=== PATIENT | male | born 1955 | race African-American/Black ===

== ENCOUNTER 2017-07-01 11:31 | Inpatient (IN) | payer OTHER ==
[2017-07-01 12:00] VITALS: BMI 30.4
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
[2017-07-01] MEDS ORDERED: MAG HYDROX/AL HYDROX/SIMETH 30 ML UNIT-DOSE CUP PO PRN (13:59)
[2017-07-01] MEDS ORDERED: MAGNESIUM HYDROX 2400MG/30ML ORAL SUSPENSION 30 ML CUP PO PRN (13:59)
[2017-07-01] MEDS ORDERED: ACETAMINOPHEN 325 MG TABLET (FP) PO PRN (13:59)
[2017-07-01] MEDS ORDERED: P-EPHED 60MG/TRIPROLIDI 2.5MG TABLET PO PRN (13:59)
[2017-07-01] MEDS ORDERED: LOPERAMIDE HCL 2 MG CAPSULE PO PRN (13:59)
[2017-07-01] MEDS ORDERED: guaiFENesin/D-METHORPHAN HB 10 ML UNIT-DOSE CUPS PO PRN (13:59)
[2017-07-01] MEDS ORDERED: MAGNESIUM CITRATE 300 ML BOTTLE PO PRN (13:59)
[2017-07-01] MEDS ORDERED: hydrOXYzine PAMOATE 50 MG CAPSULE (FP) PO PRN (13:59)
[2017-07-01] MEDS ORDERED: MENTHOL/PHENOL 1 EACH UD MM PRN (13:59)
[2017-07-01] MEDS ORDERED: METHADONE HCL 10 MG TABLET (FOR DETOX USE ONLY) PO ONE ×2 (14:34→23:00)
[2017-07-01] MEDS: diazePAM 5 MG TABLET PO PRN ×2 (15:57→22:16)
[2017-07-01 18:07] LABS: URINE APPEARANCE CLEAR; URINE BILIRUBIN NEGATIVE (NEGATIVE); URINE BLOOD NEGATIVE (NEGATIVE); URINE COLOR YELLOW; URINE GLUCOSE (UA) NEGATIVE (NEGATIVE); URINE KETONE NEGATIVE (NEGATIVE); URINE NITRITE NEGATIVE (NEGATIVE); URINE PROTEIN NEGATIVE (NEGATIVE)
[2017-07-01 21:47] LABS: URINE LEUK ESTERASE Negative (NEGATIVE)
[2017-07-01] MEDS: BUDESONIDE/FORMETEROL FUMARATE 80/4.5 mcg INHALER IH SCH (22:16)
[2017-07-01] MEDS: BACLOFEN 10 MG TABLET (FP) PO SCH (22:16)
[2017-07-01] MEDS: THIAMINE HCL 100 MG TABLET (FP) PO SCH (22:16)
[2017-07-02] MEDS: BACLOFEN 10 MG TABLET (FP) PO SCH ×3 (05:11→22:13)
[2017-07-02] MEDS: ALBUTEROL SO4 18 GM HFA INHALER IH PRN (07:57)
[2017-07-02] MEDS ORDERED: METHADONE HCL 10 MG TABLET (FOR DETOX USE ONLY) PO ONE (10:00)
[2017-07-02 10:03] LABS: MCH 29.5 pg (25.7-33.7); MCHC 32.3 g/dl (32.0-35.9); MEAN CELL VOLUME 91.3 fl (80-96); MEAN PLT VOLUME 8.4 fl (7.5-11.1); PLATELET COUNT 279 K/MM3 (134-434); RDW 13.6 % (11.9-15.9)
[2017-07-02] MEDS: PRENATAL VITAMINS W/ FOLIC ACID TABLET (FP) PO SCH (10:06)
[2017-07-02] MEDS: BUDESONIDE/FORMETEROL FUMARATE 80/4.5 mcg INHALER IH SCH ×2 (10:08→22:12)
[2017-07-02] MEDS ORDERED: ALBUTEROL SO4 2.5/IPRATROPIUM 0.5 INH SOL 3 ML VIAL.NEB. NEB PRN (10:11)
--- NOTE | 2017-07-02 10:16 | EKG ---
Test Reason : Blood Pressure : / mmHG Vent. Rate : 071 BPM Atrial Rate : 071 BPM P-R Int : 164 ms QRS Dur : 072 ms QT Int : 370 ms P-R-T Axes : 033 065 060 degrees QTc Int : 402 ms NORMAL SINUS RHYTHM NORMAL ECG NO PREVIOUS ECGS AVAILABLE Confirmed by DAYO MURRY, ALISHA ([id number]) on 07/02/2017 10:16:26 AM Referred By: Confirmed By:ALISHA OSHEA MD
[2017-07-02 10:24] LABS: ALBUMIN 3.3 g/dl (3.4-5.0); ALK PHOS 93 U/L (45-117); ANION GAP 6 (8-16); BILIRUBIN,TOTAL 0.6 mg/dL (0.2-1.0); CALCIUM 8.7 mg/dL (8.5-10.1); CO2 25 mmol/L (21-32); GLUCOSE,RANDOM 91 mg/dL (74-106); SGOT/AST 77 U/L (15-37); SGPT/ALT 78 U/L (12-78); TOT PROT 7.1 g/dl (6.4-8.2)
--- NOTE | 2017-07-02 12:12 | PN ---
S COWS - Scale Resting Pulse: 0= [place] 80 or Below Sweatin= Chills/Flushing Restless Observation: 1= Difficult to Sit Still Pupil Size: 0= Normal to Room Light Bone or Joint Aches: 2= Severe Diffuse Aches Runny Nose/ Eye Tearin= None GI Upset > 30mins: 2= Nausea/Diarrhea Tremor Observation of Outstretched Hands: 2= Slight Tremor Visible Yawning Observation: 1= 1-2x During Session Anxiety or Irritability: 2=Irritable/Anxious Goose Flesh Skin: 3=Piloerection COWS Score: 14 S Progress Note (SOAP) Subjective: Diarrhea, Sweating, Body Aches, Tremors, Anxious. Objective: PT. A & O X 3, OBSERVED AMBULATING ON UNIT. NO ACUTE DISTRESS. 07/02/17 12:10 Vital Signs Temperature 96.5 F L 07/02/17 09:39 Pulse Rate 76 07/02/17 09:39 Respiratory Rate 18 07/02/17 09:39 Blood Pressure 142/84 07/02/17 09:39 O2 Sat by Pulse Oximetry (%) Laboratory Tests 07/01/17 07/02/17 07/02/17 15:30 05:30 05:30 WBC 5.0 D RBC 4.41 Hgb 13.0 Hct 40.2 MCV 91.3 MCH 29.5 MCHC 32.3 RDW 13.6 D Plt Count 279 MPV 8.4 Sodium 141 Potassium 4.0 Chloride 110 H Carbon Dioxide 25 Anion Gap 6 L BUN 14 D Creatinine 1.0 D Creat Clearance w eGFR > 60 Random Glucose 91 Calcium 8.7 Total Bilirubin 0.6 AST 77 H D ALT 78 D Alkaline Phosphatase 93 Total Protein 7.1 D Albumin 3.3 L Urine Color Yellow Urine Appearance Clear Urine pH 5.0 Ur Specific [place] 1.017 Urine Protein Negative Urine Glucose (UA) Negative Urine Ketones Negative Urine Blood Negative Urine Nitrite Negative Urine Bilirubin Negative Urine Urobilinogen 2.0 Ur Leukocyte Esterase Negative RPR Titer 07/02/17 05:30 WBC RBC Hgb Hct MCV MCH MCHC RDW Plt Count MPV Sodium Potassium Chloride Carbon Dioxide Anion Gap BUN Creatinine Creat Clearance w eGFR Random Glucose Calcium Total Bilirubin AST ALT Alkaline Phosphatase Total Protein Albumin Urine Color Urine Appearance Urine pH Ur Specific [place] Urine Protein Urine Glucose (UA) Urine Ketones Urine Blood Urine Nitrite Urine Bilirubin Urine Urobilinogen Ur Leukocyte Esterase RPR Titer Nonreactive LABS NOTED. Assessment: 07/02/17 12:10 WITHDRAWAL SYMPTOMS. Plan: CONTINUED DETOX. REPEAT AST ON 07/04/2017 FOR ELEVATED ADMISSION LEVEL. INCREASE DAILY PO FLUID INTAKE.
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
[2017-07-02] MEDS: diazePAM 5 MG TABLET PO PRN ×2 (17:58→22:16)
[2017-07-02] MEDS: THIAMINE HCL 100 MG TABLET (FP) PO SCH (22:52)
[2017-07-02] MEDS: ZOLPIDEM TARTRATE 10 MG TABLET (PARK CARE ONLY) PO PRN (22:54)
[2017-07-03] MEDS: BACLOFEN 10 MG TABLET (FP) PO SCH ×3 (06:16→22:12)
[2017-07-03] MEDS ORDERED: METHADONE HCL 5 MG TABLET (FOR DETOX USE ONLY) PO ONE (10:00)
[2017-07-03] MEDS: PRENATAL VITAMINS W/ FOLIC ACID TABLET (FP) PO SCH (10:14)
[2017-07-03] MEDS: BUDESONIDE/FORMETEROL FUMARATE 80/4.5 mcg INHALER IH SCH ×2 (10:14→22:12)
--- NOTE | 2017-07-03 12:11 | PN ---
S COWS - Scale Resting Pulse: 1= [place] 81-100 Sweatin= Chills/Flushing Restless Observation: 1= Difficult to Sit Still Pupil Size: 0= Normal to Room Light Bone or Joint Aches: 2= Severe Diffuse Aches Runny Nose/ Eye Tearin= None GI Upset > 30mins: 0= None Tremor Observation of Outstretched Hands: 2= Slight Tremor Visible Yawning Observation: 0= None Anxiety or Irritability: 2=Irritable/Anxious Goose Flesh Skin: 3=Piloerection COWS Score: 12 BHS Progress Note (SOAP) Subjective: Tremors, Anxious, Agitated, Body Aches. Objective: PT. A & O X 3, OBSERVED AMBULATING ON UNIT. NO ACUTE DISTRESS. 07/03/17 12:09 Vital Signs Temperature 97.9 F 07/03/17 08:58 Pulse Rate 78 07/03/17 08:58 Respiratory Rate 18 07/03/17 08:58 Blood Pressure 147/95 07/03/17 08:58 O2 Sat by Pulse Oximetry (%) Laboratory Tests 07/01/17 07/02/17 07/02/17 15:30 05:30 05:30 WBC 5.0 D RBC 4.41 Hgb 13.0 Hct 40.2 MCV 91.3 MCH 29.5 MCHC 32.3 RDW 13.6 D Plt Count 279 MPV 8.4 Sodium 141 Potassium 4.0 Chloride 110 H Carbon Dioxide 25 Anion Gap 6 L BUN 14 D Creatinine 1.0 D Creat Clearance w eGFR > 60 Random Glucose 91 Calcium 8.7 Total Bilirubin 0.6 AST 77 H D ALT 78 D Alkaline Phosphatase 93 Total Protein 7.1 D Albumin 3.3 L Urine Color Yellow Urine Appearance Clear Urine pH 5.0 Ur Specific [place] 1.017 Urine Protein Negative Urine Glucose (UA) Negative Urine Ketones Negative Urine Blood Negative Urine Nitrite Negative Urine Bilirubin Negative Urine Urobilinogen 2.0 Ur Leukocyte Esterase Negative RPR Titer 07/02/17 05:30 WBC RBC Hgb Hct MCV MCH MCHC RDW Plt Count MPV Sodium Potassium Chloride Carbon Dioxide Anion Gap BUN Creatinine Creat Clearance w eGFR Random Glucose Calcium Total Bilirubin AST ALT Alkaline Phosphatase Total Protein Albumin Urine Color Urine Appearance Urine pH Ur Specific [place] Urine Protein Urine Glucose (UA) Urine Ketones Urine Blood Urine Nitrite Urine Bilirubin Urine Urobilinogen Ur Leukocyte Esterase RPR Titer Nonreactive LABS NOTED. Assessment: 07/03/17 12:10 WITHDRAWAL SYMPTOMS. Plan: CONTINUE DETOX CLONIDINE, 0.1 MG PO FOR DETOX SYMPTOMS. LIDODERM PATCH FOR LOWER BACK PAIN. INCREASE DAILY PO FLUID INTAKE.
[2017-07-03] MEDS ORDERED: LIDOCAINE 5% TOPICAL PATCH TP ONE (12:12)
[2017-07-03] MEDS ORDERED: cloNIDine HCL 0.1 MG TABLET PO ONE (12:12)
[2017-07-03] MEDS: THIAMINE HCL 100 MG TABLET (FP) PO SCH (22:12)
[2017-07-03] MEDS: diazePAM 5 MG TABLET PO PRN (22:12)
[2017-07-03] MEDS: ZOLPIDEM TARTRATE 10 MG TABLET (PARK CARE ONLY) PO PRN (22:12)
[2017-07-03] MEDS: LIDOCAINE PATCH REMOVAL MC SCH (22:12)
[2017-07-04] MEDS: BACLOFEN 10 MG TABLET (FP) PO SCH ×3 (06:36→22:07)
[2017-07-04] MEDS ORDERED: METHADONE HCL 5 MG TABLET (FOR DETOX USE ONLY) PO ONE (10:00)
[2017-07-04] MEDS: diazePAM 5 MG TABLET PO PRN (10:19)
[2017-07-04] MEDS: PRENATAL VITAMINS W/ FOLIC ACID TABLET (FP) PO SCH (10:22)
[2017-07-04] MEDS: BUDESONIDE/FORMETEROL FUMARATE 80/4.5 mcg INHALER IH SCH ×2 (10:23→22:07)
[2017-07-04] MEDS: LIDOCAINE 5% TOPICAL PATCH TP SCH (10:44)
--- NOTE | 2017-07-04 11:51 | PN ---
BHS Progress Note (SOAP) Subjective: Interrupted Sleep, Anxious, Sweating, Tremors. Objective: PT. A & O X 3, OBSERVED AMBULATING ON UNIT. NO ACUTE DISTRESS. 07/04/17 11:25 Vital Signs Temperature 97.7 F 07/04/17 10:04 Pulse Rate 77 07/04/17 10:04 Respiratory Rate 18 07/04/17 10:04 Blood Pressure 134/85 07/04/17 10:04 O2 Sat by Pulse Oximetry (%) Laboratory Tests 07/01/17 07/02/17 07/02/17 15:30 05:30 05:30 WBC 5.0 D RBC 4.41 Hgb 13.0 Hct 40.2 MCV 91.3 MCH 29.5 MCHC 32.3 RDW 13.6 D Plt Count 279 MPV 8.4 Sodium 141 Potassium 4.0 Chloride 110 H Carbon Dioxide 25 Anion Gap 6 L BUN 14 D Creatinine 1.0 D Creat Clearance w eGFR > 60 Random Glucose 91 Calcium 8.7 Total Bilirubin 0.6 AST 77 H D ALT 78 D Alkaline Phosphatase 93 Total Protein 7.1 D Albumin 3.3 L Urine Color Yellow Urine Appearance Clear Urine pH 5.0 Ur Specific [place] 1.017 Urine Protein Negative Urine Glucose (UA) Negative Urine Ketones Negative Urine Blood Negative Urine Nitrite Negative Urine Bilirubin Negative Urine Urobilinogen 2.0 Ur Leukocyte Esterase Negative RPR Titer 07/02/17 05:30 WBC RBC Hgb Hct MCV MCH MCHC RDW Plt Count MPV Sodium Potassium Chloride Carbon Dioxide Anion Gap BUN Creatinine Creat Clearance w eGFR Random Glucose Calcium Total Bilirubin AST ALT Alkaline Phosphatase Total Protein Albumin Urine Color Urine Appearance Urine pH Ur Specific [place] Urine Protein Urine Glucose (UA) Urine Ketones Urine Blood Urine Nitrite Urine Bilirubin Urine Urobilinogen Ur Leukocyte Esterase RPR Titer Nonreactive LABS NOTED. PATIENT PREFERRED NOT TO HAVE AST LEVEL REPEATED. HOWEVER, PATIENT REPORTS THAT HE HAS BEEN TREATED FOR HEP C IN PAST AND THAT HE HAS A STEREOTYPER HELPER (DR. WAYNE, [facility], [place], [place] AND THAT HE WILL FOLLOW-UP FOR FURTHER EVALUATION WITH STEREOTYPER HELPER AFTER DISCHARGE FROM DETOX. 07/04/17 11:51 Assessment: 07/04/17 11:26 WITHDRAWAL SYMPTOMS. Plan: CONTINUE DETOX.
--- NOTE | 2017-07-04 13:22 | PN ---
BHS Progress Note Note: Clonidine, 0.1 mg PO X 1 ordered for Detox symptoms. Ramirez Adan NUCLEAR MEDICINE PHYSICIAN
[2017-07-04] MEDS ORDERED: cloNIDine HCL 0.1 MG TABLET PO ONE (14:15)
[2017-07-04] MEDS: ZOLPIDEM TARTRATE 10 MG TABLET (PARK CARE ONLY) PO PRN (22:06)
[2017-07-04] MEDS: THIAMINE HCL 100 MG TABLET (FP) PO SCH (22:07)
[2017-07-04] MEDS: LIDOCAINE PATCH REMOVAL MC SCH ×2 (22:07)
[2017-07-05] MEDS: BACLOFEN 10 MG TABLET (FP) PO SCH ×3 (05:37→22:18)
[2017-07-05] MEDS: ALBUTEROL SO4 18 GM HFA INHALER IH PRN (09:22)
[2017-07-05] MEDS ORDERED: METHADONE HCL 10 MG TABLET (FOR DETOX USE ONLY) PO ONE (10:00)
[2017-07-05] MEDS: BUDESONIDE/FORMETEROL FUMARATE 80/4.5 mcg INHALER IH SCH ×2 (10:13→22:18)
[2017-07-05] MEDS: LIDOCAINE 5% TOPICAL PATCH TP SCH (10:14)
[2017-07-05] MEDS: PRENATAL VITAMINS W/ FOLIC ACID TABLET (FP) PO SCH (10:14)
--- NOTE | 2017-07-05 12:56 | PN ---
BHS Progress Note (SOAP) Subjective: Anxious, Body Aches. Objective: PT. A & O X 3, OBSERVED AMBULATING ON UNIT. NO ACUTE DISTRESS. 07/05/17 12:55 Vital Signs Temperature 96.5 F L 07/05/17 10:00 Pulse Rate 73 07/05/17 10:00 Respiratory Rate 18 07/05/17 10:00 Blood Pressure 132/84 07/05/17 10:00 O2 Sat by Pulse Oximetry (%) Laboratory Tests 07/01/17 07/02/17 07/02/17 15:30 05:30 05:30 WBC 5.0 D RBC 4.41 Hgb 13.0 Hct 40.2 MCV 91.3 MCH 29.5 MCHC 32.3 RDW 13.6 D Plt Count 279 MPV 8.4 Sodium 141 Potassium 4.0 Chloride 110 H Carbon Dioxide 25 Anion Gap 6 L BUN 14 D Creatinine 1.0 D Creat Clearance w eGFR > 60 Random Glucose 91 Calcium 8.7 Total Bilirubin 0.6 AST 77 H D ALT 78 D Alkaline Phosphatase 93 Total Protein 7.1 D Albumin 3.3 L Urine Color Yellow Urine Appearance Clear Urine pH 5.0 Ur Specific [place] 1.017 Urine Protein Negative Urine Glucose (UA) Negative Urine Ketones Negative Urine Blood Negative Urine Nitrite Negative Urine Bilirubin Negative Urine Urobilinogen 2.0 Ur Leukocyte Esterase Negative RPR Titer 07/02/17 05:30 WBC RBC Hgb Hct MCV MCH MCHC RDW Plt Count MPV Sodium Potassium Chloride Carbon Dioxide Anion Gap BUN Creatinine Creat Clearance w eGFR Random Glucose Calcium Total Bilirubin AST ALT Alkaline Phosphatase Total Protein Albumin Urine Color Urine Appearance Urine pH Ur Specific [place] Urine Protein Urine Glucose (UA) Urine Ketones Urine Blood Urine Nitrite Urine Bilirubin Urine Urobilinogen Ur Leukocyte Esterase RPR Titer Nonreactive LABS NOTED. Assessment: 07/05/17 12:55 WITHDRAWAL SYMPTOMS. Plan: CONTINUE DETOX.
[2017-07-05] MEDS: ZOLPIDEM TARTRATE 10 MG TABLET (PARK CARE ONLY) PO PRN (22:18)
[2017-07-05] MEDS: THIAMINE HCL 100 MG TABLET (FP) PO SCH (22:18)
[2017-07-05] MEDS: LIDOCAINE PATCH REMOVAL MC SCH ×2 (22:18)
[2017-07-06] MEDS: BACLOFEN 10 MG TABLET (FP) PO SCH (05:32)
[2017-07-06 05:58] VITALS: BP 149/77; PULSE 69; TEMP 98.1
[2017-07-06] MEDS ORDERED: METHADONE HCL 5 MG TABLET (FOR DETOX USE ONLY) PO ONE (06:00)
--- NOTE | 2017-07-06 11:27 | DS ---
[facility] Detox Discharge Summary Admission Date: 07/01/17 Discharge Date: 07/06/17 - History Present History: Opioid Dependence Pertinent Past History: Asthma - Physical Exam Results Vital Signs: Vital Signs Temperature 98.1 F 07/06/17 05:58 Pulse Rate 69 07/06/17 05:58 Respiratory Rate 18 07/06/17 05:58 Blood Pressure 149/77 07/06/17 05:58 O2 Sat by Pulse Oximetry (%) Pertinent Admission Physical Exam Findings: Withdrawal symptoms Laboratory Tests 07/01/17 07/02/17 07/02/17 15:30 05:30 05:30 WBC 5.0 D RBC 4.41 Hgb 13.0 Hct 40.2 MCV 91.3 MCH 29.5 MCHC 32.3 RDW 13.6 D Plt Count 279 MPV 8.4 Sodium 141 Potassium 4.0 Chloride 110 H Carbon Dioxide 25 Anion Gap 6 L BUN 14 D Creatinine 1.0 D Creat Clearance w eGFR > 60 Random Glucose 91 Calcium 8.7 Total Bilirubin 0.6 AST 77 H D ALT 78 D Alkaline Phosphatase 93 Total Protein 7.1 D Albumin 3.3 L Urine Color Yellow Urine Appearance Clear Urine pH 5.0 Ur Specific [place] 1.017 Urine Protein Negative Urine Glucose (UA) Negative Urine Ketones Negative Urine Blood Negative Urine Nitrite Negative Urine Bilirubin Negative Urine Urobilinogen 2.0 Ur Leukocyte Esterase Negative RPR Titer 07/02/17 05:30 WBC RBC Hgb Hct MCV MCH MCHC RDW Plt Count MPV Sodium Potassium Chloride Carbon Dioxide Anion Gap BUN Creatinine Creat Clearance w eGFR Random Glucose Calcium Total Bilirubin AST ALT Alkaline Phosphatase Total Protein Albumin Urine Color Urine Appearance Urine pH Ur Specific [place] Urine Protein Urine Glucose (UA) Urine Ketones Urine Blood Urine Nitrite Urine Bilirubin Urine Urobilinogen Ur Leukocyte Esterase RPR Titer Nonreactive Labs noted - Treatment Hospital Course: Detox Protocol Followed, Detoxed Safely, Responded well, Discharged Condition Good - Medication Discharge Medications: Ambulatory Orders Albuterol Sulfate Inhaler - [Ventolin HFA Inhaler -] 2 inh IH Q4H PRN 01/14/13 Baclofen [Lioresal -] 10 mg PO TID 07/01/17 Bupropion HCl [Bupropion Xl] 150 mg PO AM 07/01/17 Gabapentin 800 mg PO TID 07/01/17 Salmeterol/Fluticasone [Advair 250Mcg/50Mcg] 1 inh PO BID 07/01/17 Thiamine HCl [Vitamin B1] 100 mg PO DAILY 07/01/17 Zolpidem Tartrate [Ambien] 10 mg PO HS 07/01/17 Bupropion HCl [Wellbutrin Xl -] 150 mg PO DAILY #30 tab.sr.24h 07/02/17 - Diagnosis (1) Depression Status: Chronic (2) History of nicotine dependence Status: Chronic (3) Opioid dependence with withdrawal Status: Acute (4) Asthma Status: Chronic - AMA Did Patient Leave Against Medical Advice: No (F/U with PCP in 1-2 weeks)
== END 2017-07-06 09:34 | disposition home or self-care (01) | DRG 897 ==
LOC: YASAS 11:31 → Y6N 14:30 → Y3N 15:02
PROVIDERS: ADMIT Internal Medicine; ATTEND Internal Medicine
PROC: HZ2ZZZZ Detoxification Services for Substance Abuse Treatment (ICD-10-PCS; principal; 2017-07-01)
DX: F11.23 Opioid dependence with withdrawal (principal); F10.20 Alcohol dependence, uncomplicated; F19.24 Other psychoactive substance dependence with psychoactive substance-induced mood disorder; F32.9 Major depressive disorder, single episode, unspecified; G47.00 Insomnia, unspecified; J45.909 Unspecified asthma, uncomplicated; Z87.891 Personal history of nicotine dependence; Z87.828 Personal history of other (healed) physical injury and trauma
CPT/HCPCS: 36415; 80053; 81003; 85027; 86593; 93005; 93010; J0475